=== PATIENT | female | born 1940 | race Caucasian/White ===

== ENCOUNTER 2020-07-13 11:35 | Emergency (ER) | payer BC, MEDICARE ==
--- NOTE | 2020-07-13 12:34 | EDM.PDOC ---
ED HPI GENERAL MEDICAL PROBLEM - General Chief Complaint: Neuro Symptoms/Deficits Stated Complaint: DIZZY AND LEGS ARE WEAK Time Seen by Provider: 07/13/20 12:05 Source of Information: Reports: Patient, Family, RN, RN Notes Reviewed History Limitations: Reports: No Limitations - History of Present Illness INITIAL COMMENTS - FREE TEXT/NARRATIVE: Patient states she feels dizzy and weak. Her words "I feel like a calf ". Patient is a smoker for 60+ years. She denies shortness of breath, chest pain, any numbness or tingling. She denies fever, cough, abdomen pain, or d ifficulty urinating. She still drives. Daughter states there has been some change in mentation gradually including forgetfulness. Patient confirms difficulty in finding words at times. Her primary care provider is unaware of her symptoms and has not been seen recently by him. Daughter state her and her brother have noticed changes over the last 1 to 2 weeks. She had some forgetfulness yesterday. Her son checked on her this morning and decided because things were getting better to bring her in. Her only medication is hydrochlorothiazide for blood pressure. She takes no herbal supplements. She does not drink. She does not use illicit drugs. Onset: Gradual Onset Date: 06/29/20 Duration: Day(s):, Waxing/Waning Location: Reports: Generalized (Patient states she just feels weak and dizzy.) Quality: Reports: Other (Weakness) Severity: Moderate Improves with: Reports: None Worsens with: Reports: None Context: Reports: Other (No particular time or associated event) Associated Symptoms: Reports: Confusion (Occasional forgetfulness), Weakness. Denies: Chest Pain, Cough, Diaphoresis, Fever/Chills, Headaches, Loss of Appetite, Malaise, Nausea/Vomiting, Rash, Seizure, Shortness of Breath, Syncope Treatments MEAT HOSTESS: Reports: Other (see below) (None) - Related Data Allergies Allergy/AdvReac Type Severity Reaction Status Date / Time No Known Allergies Allergy Verified 07/13/20 12:06 Home Meds: Home Meds hydroCHLOROthiazide [Hydrochlorothiazide] 1 tab PO BEDTIME 07/13/20 [History] Past Medical History - Past Surgical History GI Surgical History: Reports: Cholecystectomy Female Surgical History: Reports: Hysterectomy Social & Family History - Tobacco Use Smoking Status *Q: Current Every Day Smoker Years of Tobacco use: 60 Packs/Tins Daily: 1 ED ROS GENERAL - Review of Systems Review Of Systems: See Below Constitutional: Reports: Weakness. Denies: Fever, Chills, Malaise, Fatigue, Night Sweats, Diaphoresis, Decreased Appetite, Weight Loss, Weight Gain HEENT: Reports: No Symptoms Respiratory: Denies: Shortness of Breath, Wheezing, Cough Cardiovascular: Reports: Blood Pressure Problem (Takes hydrochlorothiazide for hypertension), Lightheadedness. Denies: Chest Pain, Dyspnea on Exertion, Palpitations, Syncope GI/Abdominal: Denies: Abdominal Pain, Anorexia, Constipation, Diarrhea, Decreased Appetite, Difficulty Swallowing, Distension, Nausea : Reports: Incontinence. Denies: Dysuria, Flank Pain, Frequency, Pain, Urgency Musculoskeletal: Denies: Neck Pain, Shoulder Pain, Muscle Pain, Muscle Stiffness Skin: Reports: No Symptoms Neurological: Reports: Confusion, Dizziness, Trouble Speaking (Occasional difficulty finding words), Difficulty Walking, Weakness. Denies: Headache, Numbness, Pre-Existing Deficit, Syncope, Tingling, Tremors, Gait Disturbance Psychiatric: Reports: Confusion (Occasional, not presently confused.). Denies: Agitation, Anxiety Hematologic/Lymphatic: Reports: No Symptoms Immunologic: Reports: No Symptoms ED EXAM, NEURO - Physical Exam Exam: See Below Exam Limited By: No Limitations General Appearance: Alert, WD/WN, No Apparent Distress Eye Exam: Bilateral Eye: Normal Inspection, PERRL Ears: Normal External Exam, Normal Canal (Moderate amount of wax in left ear however not occluding the eardrum.), Hearing Grossly Normal, Normal TMs Nose: Normal Inspection, Normal Mucosa, No Blood Throat/Mouth: Normal Inspection, Normal Lips, Normal Teeth, Normal Gums, Normal Oropharynx, Normal Voice, No Airway Compromise Head Exam: Atraumatic, Normocephalic. No: Facial Swelling, Facial Tenderness, Sinus Tenderness Neck: Normal Inspection, Supple, Non-Tender, Full Range of Motion Respiratory/Chest: No Respiratory Distress, Lungs Clear, Normal Breath Sounds, No Accessory Muscle Use, Chest Non-Tender Cardiovascular: Normal Peripheral Pulses, Regular Rate, Rhythm, No Edema, No Gallop, No JVD, No Murmur, No Rub GI/Abdominal: Normal Bowel Sounds, Soft, Non-Tender, No Organomegaly, No Distention, No Abnormal Bruit, No Mass, Pelvis Stable Neurological: Alert, Normal Mood/Affect, Normal Dorsiflexion, CN II-XII Intact, Normal Plantar Flexion, Normal Gait, Normal Reflexes, No Motor/Sensory Deficits, Oriented x 3 Back Exam: Normal Inspection, Full Range of Motion Extremities: Normal Inspection, Normal Range of Motion, Non-Tender, No Pedal Edema, Normal Capillary Refill Psychiatric: Normal Affect, Normal Mood. No: Anxious, Depressed Mood, Flat Affect, Tearful Skin Exam: Warm, Dry, Intact, Normal Color, No Rash Course - Vital Signs Last Recorded V/S: Last Vital Signs Temp 36.6 C 07/13/20 12:34 Pulse 90 07/13/20 12:34 Resp 16 07/13/20 12:34 BP 185/119 H 07/13/20 12:34 Pulse Ox 95 07/13/20 12:34 Orthostatic Blood Pressure [ 165/84 Standing] Orthostatic Blood Pressure [ 176/102 Sitting] Orthostatic Blood Pressure [ 185/119 Supine] - Orders/Labs/Meds Labs: Laboratory Tests 07/13/20 07/13/20 07/13/20 Range/Units 12:57 12:59 12:59 WBC 9.5 (4.5-11.0) K/uL RBC 4.76 (3.30-5.50) M/uL Hgb 14.1 (12.0-15.0) g/dL Hct 42.5 (36.0-48.0) % MCV 89 (80-98) fL MCH 30 (27-31) pg MCHC 33 (32-36) % Plt Count 372 (150-400) K/uL Neut % (Auto) 47 (36-66) % Lymph % (Auto) 35 (24-44) % [place] % (Auto) 12 H (2-6) % Eos % (Auto) 5 H (2-4) % Baso % (Auto) 1 (0-1) % Sodium 136 L (140-148) mmol/L Potassium 3.4 L (3.6-5.2) mmol/L Chloride 98 L (100-108) mmol/L Carbon Dioxide 31 (21-32) mmol/L Anion Gap 10.4 (5.0-14.0) mmol/L BUN 10 (7-18) mg/dL Creatinine 1.0 (0.6-1.0) mg/dL Est Cr Clr Drug Dosing 35.49 mL/min Estimated GFR (MDRD) 53 L (>60) Glucose 106 (74-106) mg/dL Calcium 8.9 (8.5-10.1) mg/dL Urine Color Yellow (YELLOW) Urine Appearance Clear (CLEAR) Urine pH 6.5 (5.0-8.0) Ur Specific [place] 1.015 (1.008-1.030) Urine Protein Negative (NEGATIVE) mg/dL Urine Glucose (UA) Negative (NEGATIVE) mg/dL Urine Ketones Negative (NEGATIVE) mg/dL Urine Occult Blood Negative (NEGATIVE) Urine Nitrite Negative (NEGATIVE) Urine Bilirubin Negative (NEGATIVE) Urine Urobilinogen 0.2 (0.2-1.0) EU/dL Ur Leukocyte Esterase Negative (NEGATIVE) Urine RBC Not seen (0-5) Urine WBC Not seen (0-5) Ur Epithelial Cells Few Amorphous Sediment Not seen Urine Bacteria Not seen Urine Mucus Not seen - Re-Assessments/Exams Free Text/Narrative Re-Assessment/Exam: 07/13/20 14:00 Pt and daughter in agreement with plan for patient to go home with walker and followup with PCP. She will start Aspirin 81mg. If anything changes prior to being seen by PCP, pt will call/return to ER for any questions or concern. Departure - Departure Time of Disposition: 14:31 Disposition: Home, Self-Care 01 Condition: Fair (weakness) Clinical Impression: Weakness generalized, Muscle weakness - Discharge Information *PRESCRIPTION DRUG MONITORING PROGRAM REVIEWED*: Not Applicable *COPY OF PRESCRIPTION DRUG MONITORING REPORT IN PATIENT MAIN: Not Applicable Instructions: Weakness, [id number] Referrals: Donte Hennessy MD [Primary Care Provider] - Forms: ED Department Discharge Additional Instructions: Use walker for stability Start aspirin 81mg daily Make appointment with primary care provider Sepsis Event Note (ED) - Focused Exam Vital Signs: Vital Signs Temp Pulse Resp BP Pulse Ox 07/13/20 12:34 36.6 C 90 16 185/119 H 95 07/13/20 12:03 36.6 C 90 16 185/119 H 95 - Problem List Review Problem List Initiated/Reviewed/Updated: Yes - My Orders Last 24 Hours: Labs UA without infection CBC without signs of infection or anemia Metabolic panel without signs of dehydration or kidney dysfunction. - Assessment/Plan Assessment:: No signs or symptoms of stroke, infection or current illness. Pt to followup with PCP in the next week for further investigation to symptoms Pt provided a walker for stability and will not drive at this time. Pt recommended to take Aspirin 81mg daily to reduce risk of stroke. Educated this will not prevent a stroke but does reduce her risk. Plan: Home with walker for stability. Family will check in on patient. She does live in a sr living complex and has access to additional help if necessary. Pt will make appointment with primary care provider for further evaluation.
== END 2020-07-13 14:32 | disposition home or self-care (01) ==
LOC: JP.ED 11:35
DX: M62.81 Muscle weakness (generalized) (principal); F17.210 Nicotine dependence, cigarettes, uncomplicated; I10 Essential (primary) hypertension
CPT/HCPCS: 36415; 80048; 81001; 85025; 99284

== ENCOUNTER 2025-02-20 22:09 | Emergency (ER) | payer MEDICAID, MEDICARE ==
[2025-02-20] MEDS ORDERED: Sodium Chloride 0.9% 10 ML Syringe FLUSH PRN (23:04)
[2025-02-20 23:15] LABS: BASOPHILS ABSOLUTE AUTO 0.12 K/uL (0.00-0.10); BASOPHILS PERCENT AUTO 1.2 % (0.1-1.3); EOSINOPHILS ABSOLUTE AUTO 0.34 K/uL (0.00-0.40); EOSINOPHILS PERCENT AUTO 3.3 % (0.0-5.4); HEMATOCRIT 42.2 % (34.3-46.0); HEMOGLOBIN 13.9 g/dL (11.2-15.5); IMMATURE GRAN ABSOLUTE AUTO 0.04 K/uL (0.00-0.23); IMMATURE GRAN PERCENT AUTO 0.4 % (0.0-0.7); LYMPHOCYTES ABSOLUTE AUTO 3.43 K/uL (0.8-3.3); LYMPHOCYTES PERCENT AUTO 33.2 % (11.4-47.7); MEAN CORPUSCULAR HEMOGLOBIN 30.2 pg (31.6-35.5); MEAN CORPUSCULAR HGB CONC 32.9 g/dL (31.6-35.5); MEAN CORPUSCULAR VOLUME 91.5 fL (81.4-99.0); MONOCYTES ABSOLUTE AUTO 1.19 K/uL (0.20-0.90); MONOCYTES PERCENT AUTO 11.5 % (3.3-12.6); NEUTROPHILS ABSOLUTE AUTO 5.22 K/uL (1.0-7.6); NEUTROPHILS PERCENT AUTO 50.4 % (40.0-78.1); PLATELET COUNT,PLT 324 K/uL (130-375); RED BLOOD CELL COUNT 4.61 M/uL (3.77-5.24); WHITE BLOOD CELL COUNT,WBC 10.3 K/uL (3.2-11.0)
[2025-02-20 23:35] LABS: PROTHROMBIN TIME 10.2 sec (9.2-10.6); PTT,PARTIAL THROMBOPLSTIN TIME 24.9 sec (21.8-27.3)
[2025-02-20 23:38] LABS: ALANINE AMINOTRANSFERASE,ALT 19 U/L (12-78); ALBUMIN 3.5 g/dL (3.4-5.0); ALKALINE PHOSPHATASE 136 U/L (46-116); ANION GAP 12.1 mmol/L (5.0-14.0); ASPARTATE AMNIOTRANSFERASE,AST 12 U/L (15-37); BILIRUBIN TOTAL 0.4 mg/dL (0.2-1.0); BLOOD UREA NITROGEN,BUN 11 mg/dL (7-18); CARBON DIOXIDE,CO2 29 mmol/L (21-32); CHLORIDE,CL 103 mmol/L (100-108); CREATININE 1.2 mg/dL (0.6-1.0); EST CRCL DRUG DOSING (CG) 26.74 mL/min; ESTIMATED GFR 45 mL/min (>60); GLUCOSE RANDOM 110 mg/dL (74-106); POTASSIUM,K 3.1 mmol/L (3.6-5.2); SODIUM,NA 141 mmol/L (140-148); TROPONIN I HIGH SENSITIVITY 8.8 pg/mL (<=60.3)
[2025-02-21] MEDS: Sodium Chloride 0.9% 100 ML IV SCH (00:26)
[2025-02-21] MEDS: Sodium Chloride 0.9% 10 ML Syringe FLUSH PRN (00:26)
[2025-02-21] MEDS: Iopamidol 755 Mg/ML 100 ML Bottle IV SCH (00:26)
== END 2025-02-21 00:50 | disposition home or self-care (01) ==
LOC: JP.ED 22:09
DX: I71.21 Aneurysm of the ascending aorta, without rupture (principal); I10 Essential (primary) hypertension; F17.210 Nicotine dependence, cigarettes, uncomplicated; Z91.048 Other nonmedicinal substance allergy status
CPT/HCPCS: 36415; 70450; 70496; 70498; 80053; 84484; 85025; 85610; 85730; 99284; Q9967